=== PATIENT | male | born 1955 | race Caucasian/White ===

== ENCOUNTER → 2023-12-16 | Day surgery (SDC) | payer OTHER ==
[2023-12-06 09:28] LABS: Absolute Eosinophils 0.1 K/uL (0-0.5); Absolute Lymphocytes (CBC) 1.1 K/uL (0.7-4.9); Absolute Monocytes 0.3 K/uL (0.1-1.3); Absolute Neutrophil 2.7 K/uL (1.8-8.0); Basophils % 0.8 % (0-1.3); Eosinophils % 3.2 % (0-4.4); Hematocrit 44.4 % (39.6-49.0); Hemoglobin 14.7 g/dL (13.6-17.9); Lymphocytes % 26.3 % (15.3-44.8); MCHC 33.1 g/dL (32.0-36.0); MCV 90.7 fL (80-100); MPV 8.7 fL (7.6-11.3); Neutrophils % 62.7 % (41.7-73.7); Nucleated Red Blood Cells % 0.1 % (0-0); Platelets 183 thou/uL (152-406); Red Cell Distribution Width 14.1 % (12.1-15.2)
[2023-12-06 09:36] LABS: Anion Gap 6.7 mEq/L (5.0-15.0); Potassium 4.7 mEq/L (3.5-5.1)
--- NOTE | 2023-12-06 14:44 | EKG ---
Test Date: 2023-12-06 Test Time: 08:56:08 Mechanical Engineering Advisor: PREO MEASUREMENT RESULTS: Intervals: Rate: 59 WY: 194 QRSD: 96 QT: 392 QTc: 388 Jasper: P: 66 WY: 194 QRS: -30 T: 27 INTERPRETIVE STATEMENTS: Sinus bradycardia Left axis deviation Incomplete right bundle branch block Septal infarct, age undetermined Abnormal ECG Compared to ECG 12/23/2008 07:32:05 Left-axis deviation now present Incomplete right bundle-branch block now present Sinus rhythm no longer present Myocardial infarct finding still present Electronically Signed On 12-06-23 14:43:19 CDT by Eric Montenegro
[~2023-12-16] MED LIST: FENTANYL CITR 100 MCG/2 ML ONE; GLYCOPYRROLATE 0.2 MG/ML SYR ONE; KETOROLAC 30 MG/ML INJ ONE; LIDOCAINE 1% MPF 5 ML VIAL ONE; MIDAZOLAM HCL 2 MG/2 ML INJ ONE; MORPHINE 4 MG/ML SYR ONE; ONDANSETRON 4 MG/2 ML VIAL ONE; Ringers Lactate 1,000 ML IV ONE; dexAMETHasone 10 MG/ML VIAL ONE; propofoL 200 MG/20 ML VIAL IV ONE
[2023-12-16] MEDS: Ringers Lactate 1,000 ML IV ONE (07:32)
[2023-12-16] MEDS: CEFAZOLIN SODIUM 2 GM/VIAL ONE (08:15)
[2023-12-16] MEDS: BUPIVACAINE 0.25% PF 30 ML VIAL ONE (08:26)
--- NOTE | 2023-12-16 09:20 | P.OP ---
Preoperative diagnosis: RIGHT inguinal Hernia Postoperative diagnosis: RIGHT inguinal Hernia Primary procedure: Open RIGHT inguinal hernia repair with mesh Anesthesia: GETA + Local Estimated blood loss: <5cc Specimen: none Findings: adiopose containing direct hernia, thin ext oblique aponeurosis Complications: None Implants: Bard Perfix Medium plug and patch Transferred to: Recovery Room () Condition: Good
[2023-12-16] MEDS: MORPHINE 4 MG/ML SYR ONE ×2 (09:37→09:52)
[2023-12-16] MEDS: HYDROCODONE/APAP 10/325 TAB ONE (10:30)
--- NOTE | 2023-12-16 12:44 | OP ---
Date of Procedure: 12/16/2023 Surgeon: Matteo Gutierrez MD, Preoperative Diagnosis: Right inguinal hernia. Postoperative Diagnosis: Right inguinal hernia. Procedure Performed: Right open right inguinal hernia repair with mesh. Anesthesia: General endotracheal plus local with 0.25% Marcaine. Estimated Blood Loss: Less than 5 cc. Specimen: None. Findings: An adipose containing direct inguinal hernia was noted on the right side and a thin [employer] al oblique aponeurosis was noted as well. Complications: None. Implants: Bard PerFix medium plug and patch hernia repair system. Disposition: The patient was transferred to recovery room in good condition. Procedure In Detail: After informed consent was obtained, patient was brought to the operating room, prepped and draped in the usual sterile fashion. After adequate anesthesia was achieved, I made an inguinal incision down to subcutaneous tissues. I dissected down using electrocautery down through C amper fat and Ann fascia to expose the external oblique aponeurosis. It was found to be quite thi n and almost see through at this point with the bulge of the hernia noted. I made an incision in thi s using a 15 blade down through the tissue, ultimately opening in its entirety to the deep inguinal r ing and distally as well using a Metzenbaum scissor protecting the ilioinguinal, iliohypogastric nerv e throughout. The spermatic cord and structures were encircled at this point, dissected free from th e inguinal hernia sac, which was returned to the preperitoneal space at this point. The patient was in Trendelenburg position, making it quite easy to push the hernia sac back into the preperitoneal sp sanjana. At this point, I deployed a medium Bard PerFix plug into the preperitoneal space and deployed a t this point. I then secured it using 3 interrupted 2-0 PDS sutures circumferentially around the rin g and pulled the testicle to allow for adequate movement of the spermatic cord structures. At this p oint, I brought the hernia patch into place and placed to the pubic tubercle, sized appropriately, an d secured it to the pubic tubercle medially using a 2-0 PDS suture and on the medial shelving edge an d lateral shelving edge of the internal oblique aponeurosis in the undersurface of the inguinal ligam ent. I then reconstituted the deep inguinal ring using the same said interrupted 2-0 PDS suture, tri mmed the mesh appropriately. At this point, the area was copiously irrigated and dried adequately. I then closed the external oblique aponeurosis, which was quite thin and alveolar and had holes in it with a 3-0 Vicryl suture in a running fashion. A Camper fat and Ann fascia was closed as well en bloc using the same set 3-0 Vicryl suture. The deep dermal plane was closed once again using the [facility] set 3-0 interrupted Vicryl suture and skin was closed with a 4-0 Monocryl in a running fashion. D ermabond was placed over top. The patient tolerated the procedure without evidence of complication a nd transferred back in good condition. All counts were correct at the end of the case. MISBAH/JOVAN Voice ID: [id number] Report ID: [id number]
[2023-12-16 14:41] VITALS: BP 102/66; TEMP 97.7; O2SAT 97
== END | disposition home or self-care (01) ==
LOC: OR 07:08
PROVIDERS: ATTEND Surgery
PROC: 0YU50JZ Supplement Right Inguinal Region with Synthetic Substitute, Open Approach (ICD-10-PCS; principal; 2023-12-16 09:00)
DX: K40.90 Unilateral inguinal hernia, without obstruction or gangrene, not specified as recurrent (principal); E78.00 Pure hypercholesterolemia, unspecified
CPT/HCPCS: 93005; 85025; 80048; 36415; 49650; J2704; J2001; J2250; J3010; J1100; J2405; J7120 ×2